=== PATIENT | female | born 1960 | race Hispanic/Latino ===

== ENCOUNTER → 2022-08-25 | Outpatient (CLI) | payer BC | END | disposition home or self-care (01) | LOC: RAH 15:52 | PROVIDERS: ATTEND Physical Medicine & Rehabilitation | DX: M17.12 Unilateral primary osteoarthritis, left knee (principal) | CPT/HCPCS: 73562 ==

== ENCOUNTER → 2022-09-10 | Outpatient (CLI) | payer BC | END | disposition home or self-care (01) | LOC: SHCH 10:05 | PROVIDERS: ATTEND Internal Medicine Cardiovascular Disease | DX: R00.2 Palpitations (principal); R60.9 Edema, unspecified; I10 Essential (primary) hypertension; E78.5 Hyperlipidemia, unspecified | CPT/HCPCS: 93306 ==

== ENCOUNTER → 2022-11-08 | Outpatient (CLI) | payer BC ==
[~2022-11-08] MED LIST: REGADENOSON 0.4 MG/5 ML PF SYG IVP SCH
== END | disposition home or self-care (01) ==
LOC: SHCH 09:11
PROVIDERS: ATTEND Internal Medicine Cardiovascular Disease
DX: R06.02 Shortness of breath (principal)
CPT/HCPCS: 78452; 96374; 93017; J2785; A9500 ×2

== ENCOUNTER 2023-02-08 16:19 | Emergency (ER) | payer BC ==
[~2023-02-08] VITALS: Ht 172.7 cm; Wt 84.8 kg
[2023-02-08 16:24] VITALS: BP 156/74
[2023-02-08 17:08] LABS: BASOPHILS % (AUTO) 0.5 % (0.0-5.0); EOSINOPHILS % (AUTO) 2.2 % (0.0-8.0); LYMPHOCYTES % (AUTO) 25.4 % (21.0-51.0); MEAN CORPUSCULAR HEMOGLOBIN 29.1 pg (27.0-33.0); MEAN CORPUSCULAR HGB CONC 34.4 g/dL (32.0-36.0); MEAN CORPUSCULAR VOLUME 84.7 fL (79-99); MONOCYTES % (AUTO) 5.4 % (3.0-13.0); NEUTROPHILS % (AUTO) 66.3 % (40.0-77.0); PLATELET COUNT (AUTO) 316 K/uL (130-400); RED BLOOD CELL COUNT(AUTO) 4.84 MIL/uL (4.00-5.50); RED CELL DISTRIBUTION WIDTH 13.3 % (11.0-15.5); WHITE BLOOD COUNT (AUTO) 9.2 K/uL (4.8-10.8)
[2023-02-08 17:33] LABS: ALBUMIN 3.9 g/dL (3.5-5.0); TOTAL PROTEIN, SERUM 7.7 g/dL (6.0-8.3)
[2023-02-08] MEDS ORDERED: POTASSIUM BICARB/CIT AC 25 MEQ TABLET.EFF PO ONE (18:00)
[2023-02-08] MEDS ORDERED: ONDANSETRON ODT 4MG TAB SL ONE (18:00)
== END 2023-02-08 19:39 | disposition left against medical advice (07) ==
LOC: EDH 16:19
DX: R07.89 Other chest pain (principal); R11.2 Nausea with vomiting, unspecified; Z53.21 Procedure and treatment not carried out due to patient leaving prior to being seen by health care provider
CPT/HCPCS: 36415; 71045; 80053; 85025; 93005; 99281

== ENCOUNTER → 2023-08-15 | Outpatient (CLI) | payer BC | END | disposition home or self-care (01) | LOC: RAH 09:25 | PROVIDERS: ATTEND Physical Medicine & Rehabilitation | DX: M41.85 Other forms of scoliosis, thoracolumbar region (principal) | CPT/HCPCS: 72082 ==

== ENCOUNTER → 2023-08-16 | Outpatient (CLI) | payer BC | END | disposition home or self-care (01) | LOC: RAH 14:23 | PROVIDERS: ATTEND Physical Medicine & Rehabilitation | DX: M47.817 Spondylosis without myelopathy or radiculopathy, lumbosacral region (principal); M51.27 Other intervertebral disc displacement, lumbosacral region; M48.07 Spinal stenosis, lumbosacral region | CPT/HCPCS: 72131 ==

== ENCOUNTER 2025-09-03 06:15 | Day surgery (SDC) | payer BC ==
[~2025-09-03] VITALS: Ht 170.2 cm; Wt 90.3 kg
[2025-09-03] VITALS (10 sets, daily range): BP systolic 115–137; BP diastolic 70–82; PULSE 55–67; RESP 14–18; TEMP 97.3–97.9
[2025-09-03] MEDS: 0.9%NACL 1000ML 1,000 ML IV ONE (07:12)
[2025-09-03] MEDS ORDERED: LEVO50TA6 PO (07:18)
[2025-09-03] MEDS ORDERED: ESCI20TA PO (07:18)
[2025-09-03] MEDS ORDERED: VALS1TAB7 PO (07:18)
[2025-09-03] MEDS ORDERED: LORA10TA7 PO (07:18)
[2025-09-03] MEDS ORDERED: METO25TA3 PO (07:18)
[2025-09-03] MEDS ORDERED: LATA2.5D7 OU (07:18)
[2025-09-03] MEDS ORDERED: LURASIDONE PO (07:18)
[2025-09-03] MEDS ORDERED: CRESTOR 10MG PO (07:18)
--- NOTE | 2025-09-03 10:17 | NUR ---
Full and complete discharge instructions given to Patient and Family. All questions answered. PIV removed with catheter tip intact. Patient tolerating liquids and voided before discharge. W/C to POV with Family to Home.
== END 2025-09-03 10:12 | disposition home or self-care (01) ==
LOC: ENDO 06:15 → DAH 06:15 → ENDO 10:12
PROVIDERS: ATTEND Internal Medicine Gastroenterology
DX: Z12.11 Encounter for screening for malignant neoplasm of colon (principal); D12.2 Benign neoplasm of ascending colon; D12.5 Benign neoplasm of sigmoid colon; K64.8 Other hemorrhoids; K44.9 Diaphragmatic hernia without obstruction or gangrene; K76.0 Fatty (change of) liver, not elsewhere classified; J45.909 Unspecified asthma, uncomplicated; E78.5 Hyperlipidemia, unspecified; I10 Essential (primary) hypertension; E03.9 Hypothyroidism, unspecified; G43.909 Migraine, unspecified, not intractable, without status migrainosus; F41.9 Anxiety disorder, unspecified; F32.A Depression, unspecified; K58.9 Irritable bowel syndrome, unspecified; Z90.710 Acquired absence of both cervix and uterus; Z98.890 Other specified postprocedural states; Z79.899 Other long term (current) drug therapy
CPT/HCPCS: 45385; J7030; J2704; A4620; A4215; J3490